=== PATIENT | male | born 1980 | race Caucasian/White ===

== ENCOUNTER 2017-08-03 01:33 | Emergency (ER) | payer SELFPAY ==
[2017-08-03] MEDS: AMOXICILLIN/K CLAV 875/125MG TABLET. PO (03:00)
[2017-08-03] MEDS: KETOROLAC 30 MG/ML INJ. IM (03:01)
== END 2017-08-03 03:07 | disposition home or self-care (01) ==
LOC: ER 01:33
DX: K08.89 Other specified disorders of teeth and supporting structures (principal)
CPT/HCPCS: 96372; 99283; J1885